=== PATIENT | female | born 1935 | race African-American/Black ===

== ENCOUNTER 2022-03-12 18:01 | Inpatient (IN) | payer MEDICARE, BC ==
[~2022-03-12] VITALS: Ht 160 cm; Wt 58.7 kg
[2022-03-12] MEDS ORDERED: SODIUM CHLORIDE 0.9% 1,000 ML IV ONE (19:15)
[2022-03-12 19:37] LABS: BASOPHILS % 0.2 % (0.0-2.0); EOSINOPHILS % 0.2 % (0.0-5.0); HEMATOCRIT. 40.2 % (36.0-48.0); HEMOGLOBIN. 13.4 g/dL (12.0-16.0); LYMPHOCYTES % 11.5 % (20.0-50.0); MEAN CORPUSCULAR HEMOGLOBIN 29.9 pg (28.0-32.0); MEAN PLATELET VOLUME 7.1 fl (7.4-10.4); MONOCYTES % 8.4 % (2.0-8.0); NEUTROPHILS % 79.7 % (40.0-76.0); PLATELET 202 x1000/uL (130-400); RED BLOOD CELL COUNT 4.47 mill/uL (4.2-5.4); RED CELL DISTRIBUTION WIDTH 15.2 % (11.6-14.6)
[2022-03-12 19:58] LABS: CHLORIDE 107 mEq/L (98-107)
[2022-03-12] MEDS ORDERED: QUET25TA MT (22:03)
[2022-03-12] MEDS ORDERED: QUETIAPINE FUMARATE 25MG TABLET PO STA (22:04)
[2022-03-12] MEDS ORDERED: ACETAMINOPHEN 325MG TABLET PO PRN ×2 (23:30)
[2022-03-12] MEDS ORDERED: DOCUSATE SODIUM 100MG CAPSULE PO PRN (23:30)
[2022-03-12] MEDS ORDERED: IPRATROPIUM/ALBUTEROL 0.5-3(2.5)MG/3ML NEB HHN PRN (23:30)
[2022-03-12] MEDS ORDERED: ACETAMINOPHEN 650MG SUPP PR PRN ×2 (23:30)
[2022-03-12] MEDS ORDERED: MAGNESIUM/ALUMINUM HYDROXIDE/SIMETHICONE 30ML UDC PO PRN (23:30)
[2022-03-12] MEDS ORDERED: CLONIDINE 0.1MG TABLET PO PRN (23:30)
[2022-03-12] MEDS ORDERED: GUAIFENESIN 200MG/10ML SUGAR FREE UDC PO PRN (23:30)
[2022-03-13 03:32] LABS: CLARITY URINE CLEAR (CLEAR); COLOR URINE YELLOW (YELLOW); KETONES URINE TRACE (NEGATIVE); LEUKOCYTE ESTERASE URINE TRACE (NEGATIVE); NITRITE URINE NEGATIVE (NEGATIVE); OCCULT BLOOD URINE NEGATIVE (NEGATIVE); PH URINE 6.5 (4.5-8.0); PROTEIN URINE NEGATIVE (NEGATIVE); SPECIFIC GRAVITY URINE 1.013 (1.005-1.030); UROBILINOGEN URINE 0.2 E.U./dL (0.2-1.0)
[2022-03-13 08:45] VITALS: BP 143/62
[2022-03-13 09:00] VITALS: BP 143/62
[2022-03-13] MEDS: AMLODIPINE 10MG TABLET PO SCH (09:00)
[2022-03-13] MEDS: ASPIRIN 81MG EC TABLET PO SCH (09:00)
[2022-03-13 12:00] VITALS: BP 129/59
[2022-03-13 16:00] VITALS: BP 145/61
[2022-03-13] MEDS: LORAZEPAM 2MG/ML CPJ IV PRN (18:48)
[2022-03-13 20:00] VITALS: BP 142/73
[2022-03-13] MEDS ORDERED: RISPERIDONE 0.5MG TABLET PO SCH (21:00)
[2022-03-14] VITALS: BP 159/62
[2022-03-14 04:00] VITALS: BP 138/66
[2022-03-14 06:39] LABS: VITAMIN B12 SERUM 879 pg/mL (211-911)
[2022-03-14 08:00] VITALS: BP 141/61
[2022-03-14] MEDS: AMLODIPINE 10MG TABLET PO SCH (09:00)
[2022-03-14] MEDS: ASPIRIN 81MG EC TABLET PO SCH (09:00)
[2022-03-14] MEDS: HALOPERIDOL LACTATE 5MG/ML VIAL IM NR ×2 (10:25→17:59)
[2022-03-14] MEDS ORDERED: LATA2.5D14 EACHEYE (11:21)
[2022-03-14 12:00] VITALS: BP 131/74
[2022-03-14] MEDS: QUETIAPINE FUMARATE 25MG TABLET PO SCH ×2 (13:35→16:56)
[2022-03-14 16:00] VITALS: BP 138/72
[2022-03-14] MEDS: LORAZEPAM 2MG/ML CPJ IV PRN (17:36)
[2022-03-14] MEDS ORDERED: ACETAMINOPHEN 325MG SUPP PR PRN (18:00)
[2022-03-14 20:00] VITALS: BP 125/64
[2022-03-14] MEDS: LATANOPROST 0.005% OPHTH DROPS 2.5ML EACHEYE SCH (20:58)
[2022-03-14] MEDS: MEMANTINE HCL 5MG TABLET PO SCH (21:02)
[2022-03-14] MEDS: CEFTRIAXONE 1,000 MG in DEXTROSE 5% WATER 50 ML IV SCH (21:08)
[2022-03-15] VITALS (7 sets, daily range): BP systolic 120–179; BP diastolic 48–80
[2022-03-15] MEDS: LORAZEPAM 2MG/ML CPJ IV PRN ×2 (01:09→11:48)
[2022-03-15] MEDS ORDERED: HALOPERIDOL LACTATE 5MG/ML VIAL IM PRN (07:00)
[2022-03-15] MEDS ORDERED: HYDRALAZINE 20MG/ML VIAL IV PRN (07:00)
[2022-03-15 08:09] LABS: HEMATOCRIT 41.1 % (36.0-48.0); HEMOGLOBIN 13.8 g/dL (12.0-16.0); MEAN CORPUSCULAR HEMOGLOBIN 30.2 pg (28.0-32.0); MEAN CORPUSCULAR VOLUME 89.9 fL (81.0-99.0); PLATELET 212 x1000/uL (130-400); RED BLOOD CELL COUNT 4.57 mill/uL (4.2-5.4)
[2022-03-15] MEDS: AMLODIPINE 10MG TABLET PO SCH (08:14)
[2022-03-15] MEDS: MEMANTINE HCL 5MG TABLET PO SCH ×2 (08:14→21:12)
[2022-03-15] MEDS: ASPIRIN 81MG EC TABLET PO SCH (08:15)
[2022-03-15] MEDS: QUETIAPINE FUMARATE 25MG TABLET PO SCH ×3 (08:15→17:56)
[2022-03-15 08:54] LABS: CHLORIDE 110 mEq/L (98-107)
[2022-03-15] MEDS: LATANOPROST 0.005% OPHTH DROPS 2.5ML EACHEYE SCH (21:12)
[2022-03-15] MEDS: CEFTRIAXONE 1,000 MG in DEXTROSE 5% WATER 50 ML IV SCH (23:04)
[2022-03-16] VITALS: BP 148/67
[2022-03-16 04:00] VITALS: BP 126/52
[2022-03-16] MEDS: ASPIRIN 81MG EC TABLET PO SCH (09:00)
[2022-03-16] MEDS: MEMANTINE HCL 5MG TABLET PO SCH (09:42)
[2022-03-16] MEDS: QUETIAPINE FUMARATE 25MG TABLET PO SCH ×3 (09:42→17:43)
[2022-03-16] MEDS: AMLODIPINE 10MG TABLET PO SCH (09:42)
[2022-03-16 12:00] VITALS: BP 135/71
[2022-03-16] MEDS ORDERED: INFLUENZA VACCINE 05/PF 0.5 ML SYRINGE IM ONE (12:30)
[2022-03-16 15:41] VITALS: BP 133/77
[2022-03-16 16:00] VITALS: BP 133/66
== END 2022-03-16 18:20 | DRG 605 ==
LOC: ER 18:01 → MICUSO 22:31 → EDBEDREQ 22:44 → EDBEDREQTM 22:44 → 8WST 03-13 08:40
PROVIDERS: ADMIT Family Medicine Adult Medicine; ATTEND Family Medicine Adult Medicine
DX: S30.0XXA Contusion of lower back and pelvis, initial encounter (principal); M16.0 Bilateral primary osteoarthritis of hip; I10 Essential (primary) hypertension; M19.011 Primary osteoarthritis, right shoulder; M19.012 Primary osteoarthritis, left shoulder; M47.816 Spondylosis without myelopathy or radiculopathy, lumbar region; M41.9 Scoliosis, unspecified; R26.9 Unspecified abnormalities of gait and mobility; G30.9 Alzheimer's disease, unspecified; F02.80 Dementia in other diseases classified elsewhere, unspecified severity, without behavioral disturbance, psychotic disturbance, mood disturbance, and anxiety; W19.XXXA Unspecified fall, initial encounter; Y93.89 Activity, other specified; Y92.89 Other specified places as the place of occurrence of the external cause; Y99.8 Other external cause status
CPT/HCPCS: 36415; 71045; 72192; 73502; 73700; 80048; 80053; 81003; 82607; 85025; 85027; 86850; 86900; 90686; 97162; 99285; C1893; J0696; J1630; J2060; J7030; J7060